=== PATIENT | male | born 1985 | race Caucasian/White ===

== ENCOUNTER 2016-11-05 19:16 | Emergency (ER) | payer MEDICAID ==
[2016-11-05 19:27] VITALS: BP 149/80
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
== END 2016-11-05 20:02 | disposition home or self-care (01) ==
LOC: JP.ED 19:16
DX: K02.9 Dental caries, unspecified (principal); F17.210 Nicotine dependence, cigarettes, uncomplicated; F41.9 Anxiety disorder, unspecified; F32.9 Major depressive disorder, single episode, unspecified; Z98.890 Other specified postprocedural states; Z79.899 Other long term (current) drug therapy; Z79.2 Long term (current) use of antibiotics; Z88.1 Allergy status to other antibiotic agents; Z88.8 Allergy status to other drugs, medicaments and biological substances; Z91.030 Bee allergy status
CPT/HCPCS: 99283

== ENCOUNTER 2016-11-09 22:09 | Emergency (ER) | payer MEDICAID ==
[2016-11-09 22:28] VITALS: BP 125/69
[2016-11-09] MEDS ORDERED: Ketorolac 60 MG/2 ML SDV IM ONE (23:01)
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
== END 2016-11-09 23:24 | disposition home or self-care (01) ==
LOC: JP.ED 22:09
DX: K02.9 Dental caries, unspecified (principal); G43.909 Migraine, unspecified, not intractable, without status migrainosus; F41.9 Anxiety disorder, unspecified; F32.9 Major depressive disorder, single episode, unspecified; Z98.890 Other specified postprocedural states; Z79.2 Long term (current) use of antibiotics; Z79.899 Other long term (current) drug therapy; F17.210 Nicotine dependence, cigarettes, uncomplicated; Z91.030 Bee allergy status; Z88.0 Allergy status to penicillin; Z88.8 Allergy status to other drugs, medicaments and biological substances
CPT/HCPCS: 96372; 99283; J1885

== ENCOUNTER 2016-12-05 03:39 | Emergency (ER) | payer MEDICAID ==
[2016-12-05 03:58] VITALS: BP 153/91
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
== END 2016-12-05 04:34 | disposition home or self-care (01) ==
LOC: JP.ED 03:39
DX: L23.7 Allergic contact dermatitis due to plants, except food (principal); G43.909 Migraine, unspecified, not intractable, without status migrainosus; Z98.890 Other specified postprocedural states; F41.9 Anxiety disorder, unspecified; F32.9 Major depressive disorder, single episode, unspecified; F17.210 Nicotine dependence, cigarettes, uncomplicated; Z79.899 Other long term (current) drug therapy; Z88.1 Allergy status to other antibiotic agents; Z91.030 Bee allergy status; Z88.8 Allergy status to other drugs, medicaments and biological substances
CPT/HCPCS: 99283